=== PATIENT | male | born 1940 | race Caucasian/White ===

== ENCOUNTER 2020-09-29 11:37 | Inpatient (IN) | payer MEDICARE ==
[~2020-09-29] VITALS: Ht 167.6 cm; Wt 89.1 kg
--- NOTE | 2020-09-29 11:45 | NUR ---
Pt ambulated to room # 10 for bedside triage
[2020-09-29 12:04] LABS: HEMATOCRIT 43.9 % (39.0-50.0); HEMOGLOBIN 14.2 g/dl (14.0-18.0); IMMATURE GRANULOCYTES 0.3 % (0.0-5.0); MEAN CELL VOLUME 89.2 fL CALC (80.0-100.0); MEAN CORPUSCULAR HGB 28.9 pG CALC (26.0-32.0); MEAN CORPUSCULAR HGB CONC 32.3 g/dL CAL (32.0-36.0); NEUT# 8.09 thou/uL (1.82-7.42); RED BLOOD COUNT 4.92 mill/uL (4.70-6.10); RED CELL DISTRI WIDTH 12.5 % (11.5-15.5)
--- NOTE | 2020-09-29 12:18 | NUR ---
patient restiong with at bedside. denies pain,resp. easy. Urinal given with request for sample.
[2020-09-29 12:28] LABS: ALBUMIN 4.2 g/dL (3.2-5.0); ALKALINE PHOSPHATASE 88 u/l (38-126); ANION GAP 11 (6-22 (CALC)); BILIRUBIN, TOTAL 0.5 mg/dL (0.0-1.4); BUN 19 mg/dL (8-23); BUN/CREATININE RATIO 19 (12-20 (CALC)); CARBON DIOXIDE 26 mmol/l (22-30); CHLORIDE 106 mmol/l (95-108); GFR > 60 ML/MIN (>=60 (CALC)); GFR FOR AFR.AMER. > 60 ML/MIN (>=60 (CALC)); POTASSIUM 4.2 mmol/l (3.5-5.1); SGOT/AST 29 u/l (19-48); SODIUM 138 mmol/l (137-146)
[2020-09-29 12:29] LABS: ACT PARTIAL THROMBO TIME 27.7 SECONDS (20.0-32.5); PROTHROMBIN TIME 9.9 SECONDS (9.0-12.5)
[2020-09-29] MEDS ORDERED: OMEPRAZOLE DR40 MG PO (12:43)
[2020-09-29] MEDS ORDERED: LISINOP/HCTZ1 TA1 PO (12:45)
[2020-09-29] MEDS ORDERED: PRAVASTATIN20 MG PO (12:46)
[2020-09-29] MEDS ORDERED: NORVASC5 M1 PO (12:46)
[2020-09-29] MEDS ORDERED: KAPSPARGO SPRIN25 MG PO (12:47)
[2020-09-29] MEDS ORDERED: ELIQUIS5 MG PO (12:47)
[2020-09-29] MEDS ORDERED: ASPIRIN81 MG PO (12:48)
[2020-09-29] MEDS ORDERED: MULTIVITAMI1 PO (12:48)
--- NOTE | 2020-09-29 13:15 | NUR ---
IV MEDS INFUSING WITHOUT DIFFICULTY. STABLE ON MONITOR. NO COMPLAINTS AT THIS TIME.
[2020-09-29 13:39] LABS: URINE BILIRUBIN - DIPSTICK NEGATIVE (NEGATIVE); URINE BLOOD DIPSTICK NEGATIVE (NEGATIVE); URINE COLOR YELLOW; URINE GLUCOSE - DIPSTICK NEGATIVE (NEGATIVE); URINE KETONE NEGATIVE (NEGATIVE); URINE LEUK ESTERASE NEGATIVE (NEGATIVE); URINE NITRITE - DIPSTICK NEGATIVE (Negative); URINE PH 7.5 (4.5-8.0); URINE PROTEIN - DIPSTICK NEGATIVE (NEG-TRACE); URINE UROBILINOGEN - DIPSTICK 0.2 E.U./dL (0.2)
--- NOTE | 2020-09-29 14:10 | NUR ---
NO CHANGE FROM PREVIOUS ASSESSMENT.
--- NOTE | 2020-09-29 15:10 | NUR ---
PT SLEEPING, LIGHTS TURNED DOWN. STABLE ON MONITOR.
[2020-09-29 16:00] VITALS: BP 121/61
--- NOTE | 2020-09-29 16:05 | NUR ---
NO CHANGE FROM PREVIOUS ASSESSMENT.
--- NOTE | 2020-09-29 17:30 | NUR ---
MEAL TRAY PROVIDED. STABLE ON MONITOR. PERSONAL ITEMS WITHIN REACH.
--- NOTE | 2020-09-29 18:35 | NUR ---
[place] PROVIDED TO PT. STABLE ON MONITOR. NO COMPLAINTS AT THIS TIME.
--- NOTE | 2020-09-29 19:19 | NUR ---
ANDRADE ZHENG MADE AWARE OF ELEVATED TROPIN 0.336. NEW ORDERS RECIEVED.
--- NOTE | 2020-09-29 19:29 | NUR ---
NO C/O CP OR SOB OFFERED AT THIS TIME. V/S STABLE.
[2020-09-29 20:00] VITALS: BP 118/59
--- NOTE | 2020-09-29 20:05 | NUR ---
SBAR PRINTED TO FLOOR
--- NOTE | 2020-09-29 20:33 | NUR ---
Called for bed assignment and nursing supervisor lump room states she is giving MS nurse "time to catch up" maybe half hour
--- NOTE | 2020-09-29 20:50 | NUR ---
Pt taken to MS by nursing supervisor model making Jackie. MS nurse to call Yi for report when she has time.
[2020-09-29 20:53] VITALS: BP 130/69
--- NOTE | 2020-09-29 20:55 | NUR ---
TRANSFERRED TO ROOM 273 VIA WHEELCHAIR IS STABLE CONDITION AFTER AMBULATING TO BATHROOM WITHOUT DIZZINESS OR LIGHTHEADEDNESS. ORIENTED TO ROOM AND CALL SYSTEM. Anali ARAUJO CNA IN ROOM.
--- NOTE | 2020-09-29 20:55 | NUR ---
PT. TAKEN TO [facility] VIA W/C NO C/O CP OR SOB OFFERED.
[2020-09-29 23:00] VITALS: BP 96/42
--- NOTE | 2020-09-30 00:30 | NUR ---
PATIENT ADMITTED FROM ER VIA WHEELCHAIR WITH NSG SUP IN ATTENDANCE. PATIENT ABLE TO TRANSFER FROM WHEELCHAIR TO BED. PATIENT IS AWAKE ALERT AND ORIENTEDX3. PATIENT IS ADMITTED FOR SYNCOPE AND A-FIB RVR. PATIENT WITH NO COMPLAINTS AT THIS TIME. STATES THAT HE DID PASS OUT AT HOME TODAY AND THAT HE HAS BEEN HAVING "DIZZY SPELLS" FOR LAST COUPLE WEEKS. TELE MONITOR IN PLACE. IV SITE TO LEFT FOREARM INTACT AND PATENT. PATIENT WITH SALINE LOCK TO RAC-SITE IS HEALTHY. PATIENT PROVIDED WITH MEAL AND DRINK UPON ADMISSION. PATIENT ORIENTED TO ROOM AND SURROUNDINGS. INSTRUCTED ON USE OF NURSE CALL LIGHT SYSTEM, TV REMOTE AND PHONE. SAFETY PRECAUTIONS REINFORCED. CALL LIGHT IN REACH. WILL CONT TO MONITOR.
--- NOTE | 2020-09-30 01:20 | NUR ---
RECIEVED CALL FROM CONNIE IN LAB WITH TROP RESULTS OF 0.331. SLIGHT DECREASE. PATIENT APPEARS SLEEPING AT THIS TIME POSTIONED ON LEFT SIDE WITH EYES CLOSED. RESPS ARE EVEN AND UNLAB ORED. TELE MONITOR IN PLACE. IVF PATENT AND INFUSING LEFT FOREARM SITE. CALL LIGHT IN REACH. WILL CONT TO MONITOR.
[2020-09-30 03:54] VITALS: BP 114/70
--- NOTE | 2020-09-30 05:23 | NUR ---
PATIENT WAS UP TO THE BR TO VOID WITH SB ASSIST. PATIENT DENIES FEELING LIGHTHEADED OR DIZZY. DENIES ANY PALPATATIONS OR CHEST PAIN. NO SOB NOTED. IVF PATENT AND INFUSING VIA LEFT FOREARM SITE. TELE MONITOR IN PLACE WILL REPEAT TROP AT 0600. SAFETY PRECAUTIONS REINFORCED. CALL LIGHT IN REACH. WILL CONT TO MONITOR.
[2020-09-30 06:30] LABS: HEMATOCRIT 39.7 % (39.0-50.0); HEMOGLOBIN 12.5 g/dl (14.0-18.0); IMMATURE GRANULOCYTES 0.4 % (0.0-5.0); MEAN CELL VOLUME 91.3 fL CALC (80.0-100.0); MEAN CORPUSCULAR HGB 28.7 pG CALC (26.0-32.0); MEAN CORPUSCULAR HGB CONC 31.5 g/dL CAL (32.0-36.0); NEUT# 5.97 thou/uL (1.82-7.42); RED BLOOD COUNT 4.35 mill/uL (4.70-6.10); RED CELL DISTRI WIDTH 12.8 % (11.5-15.5)
[2020-09-30 06:52] LABS: ALBUMIN 3.5 g/dL (3.2-5.0); ALKALINE PHOSPHATASE 68 u/l (38-126); ANION GAP 11 (6-22 (CALC)); BILIRUBIN, TOTAL 0.4 mg/dL (0.0-1.4); BUN 16 mg/dL (8-23); BUN/CREATININE RATIO 18 (12-20 (CALC)); CALCULATED LDLCHOLESTEROL 63 mg/dL (62-129 (CALC)); CARBON DIOXIDE 24 mmol/l (22-30); CHLORIDE 109 mmol/l (95-108); CHOLESTEROL HDL RATIO 4.4 (<4.4 (CALC)); CREATININE 0.9 mg/dL (0.7-1.3); GFR > 60 ML/MIN (>=60 (CALC)); GFR FOR AFR.AMER. > 60 ML/MIN (>=60 (CALC)); HDL CHOLESTEROL 32 mg/dL (>=40); POTASSIUM 4.7 mmol/l (3.5-5.1); SGOT/AST 25 u/l (19-48); SODIUM 139 mmol/l (137-146); TOTAL CHOLESTEROL 137 mg/dl (0-199); TOTAL PROTEIN 5.9 g/dL (6.3-8.2); TOTAL TRIGLYCERIDES 216 mg/dl (30-149); VLDL CHOLESTROL 43 mg/dl (0-38 (CALC))
[2020-09-30 08:11] VITALS: BP 132/63
--- NOTE | 2020-09-30 08:11 | NUR ---
RECIEVED REPORT FROM ANTHONY RAMIREZ. PT RESTING IN SEMI FOWLERS POSITION UPON ENTERING ROOM. INTRODUCED SELF TO PT AND DISCUSSED POC. PT IS A/O X3. ASSESSMENT AND VITALS COMPLETED. BP 132/63, HR 57, O2 96% ON ROOM AIR. RESPIRATIONS ARE EVEN AND UNLABORED. LUNG SOUNDS CLEAR. HEART RHYTHM IS NORMAL WITH TELE IN PLACE, SB PER ER MONITORING. BWOEL SOUNDS ARE ACTVE IN ALL QUADRANTS, LAST REPORTED BM 09/28/2020. RADIAL PULSES STRONG. PEDAL WEAK. #20G IN LFA RUNNING WITH IVF PER ORDER, SITE APPEARS HEALTHY AND PATENT. #20G IN RAC FLUSHED, SITE APPEARS HEALTHY AND PATENT. PT DENIES OF ANY PAIN AT THIS TIME. ALL SAFETY PRECAUTIONS ARE IN PLACE WITH CALL LIGHT IN REACH. PT ENCOURAGED PT TO CALL FOR ASSISTANCE. ALL SAFETY PRECAUTIONS ARE IN PLACE WITH CALL LIGHT IN REACH. WILL CONTINUE TO MONITOR
--- NOTE | 2020-09-30 08:38 | NUR ---
DR RAMESH AT BEDSIDE
--- NOTE | 2020-09-30 09:07 | NUR ---
CALLED DR. AMADOR OFFICE IN [place] SPOKE TO NISHA REGARDING CONUSULTATION FOR THIS PT AND WAS GIVEN FAX NUMBER TO FAX RECORDS TO OFFICE REGARDING THIS PT.
--- NOTE | 2020-09-30 09:13 | NUR ---
JORGE, AI NOTFIED OF HR. ORDERED TO ADMINISTER ALL MORNING MEDICATIONS
--- NOTE | 2020-09-30 09:51 | NUR ---
Patient is screened for PT interventions and no needs are identified at this time
--- NOTE | 2020-09-30 12:54 | NUR ---
PT RESTING ON RIGHT SIDE WATCHING TV. RESPIRATIONS ARE EVEN AND UNLABORED ON ROOM AIR. IVF INFUSING PER ORDER IN #20G LAC, SITE REMAINS EVEN AND UNLABORED. PT DENIES OF ANY PAIN OR DISCOMFORTS. ALL SAFETY PRECAUTIONS ARE IN PLACE WITH CALL LIGHT IN REACH. WILL CONTINUE TO MONITOR.
[2020-09-30 15:20] VITALS: BP 109/62
--- NOTE | 2020-09-30 16:00 | NUR ---
PT RESTING IN SEMI FOWLERS POSITION. RESPIRATIONS ARE EVEN AND UNLABORED ON ROOM AIR. IVF INFUSING PER ORDER, SITE APPEARS HEALTHY AND PATENT. PT DENIES OF ANY PAINS OR DISCOMFORTS AT THIS TIME. ALL SAFETY PRECAUTIONS AR EIN PLACE WITH CALL LIGHT IN REACH. WILL CONTINUE TO MONITOR
[2020-09-30 19:05] VITALS: BP 115/63
--- NOTE | 2020-09-30 20:05 | NUR ---
PHYSICAL ASSESMENT COMPLETE. PT CURRENTLY DENIES PAIN OR DISCOMFORT. SCHEDULED MEDICATIONS AND PRN MEDICATION ADMINISTERED, SEE E-MAR. PT DENIES ANY NEEDS AT THIS TIME. PLAN OF CARE REVIEWED, PT DENIES QUESTIONS, VERBALIZES UNDERSTANDING. ITEMS WITHIN REACH, BED LOCKED IN LOW POSITION W/ BEDRAILS UP X2. CALL NÚÑEZ WITHIN REACH, AGREES TO CALL PRN.
--- NOTE | 2020-09-30 21:30 | NUR ---
ED FLARE WORKER CALLED TO INFORM PT SPIKED UP TO 170 ON HIS TELEMENTRY MONITOR. PT WAS UP TO THE BATHROOM. RETOOK VITAL AND HR HAD RETURN TO 90S. WILL CONTINUE TO MONITOR.
--- NOTE | 2020-10-01 00:05 | NUR ---
PT LAYING IN BED WITH EYES CLOSED, APPEARS TO BE SLEEPING, APPEARS COMFORTABLE AND IN NO DISTRESS. RESPIRATIONS REGULAR AND UNLABORED. ITEMS REMAIN WITHIN REACH, CALL NÚÑEZ REMAINS WITHIN REACH. BED REMAINS LOCKED AND IN LOW POSITION WITH BEDRAILS UP X2. WILL CONTINUE TO MONITOR.
[2020-10-01 00:21] VITALS: BP 123/72
--- NOTE | 2020-10-01 04:17 | NUR ---
PT RESTING IN BED, NO S/S OF DISTRESS AT THIS TIME. SAFETY PRECAUTIONS IN PLACE. WILL CONTINUE TO MONITOR.
[2020-10-01 04:33] VITALS: BP 128/61
[2020-10-01 08:00] VITALS: BP 146/77
--- NOTE | 2020-10-01 08:00 | NUR ---
RECIEVED REPORT FROM ANTHONY WILSON. PT RESTING IN SEMI FOWLERS POSITION UPON ENTERING ROOM. INTRODUCED SELF TO PT AND DISCUSSED POC. PT IS A/O X3. ASSESSMENT AND VITALS COMPLETED. BP 146/77, HR 72, O2 100% ON ROOM AIR. RESPRIATIONS ARE EVEN AND UNLABORED WITH NO DISTRESS NOTED.HEART RHYTHM NORMAL WITH TELE IN PLACE, SB PER ER MONITORING. BOWEL SOUNDS ARE ACTIVE, LAST REPORTED BM 10/01/2020. RADIAL AND PEDAL PUSLES ARE STRONG WITH NORMAL CAPILLARY REFILL. #20G IN LAC RUNNING WITH IV FLUIDS PER ORDER, SITE APPEARS HEALTHY AND PATENT. PT DENIES OF ANY PAIN OR DISCOMFORTS. ALL SAFETY PRECAUTIONS ARE IN PLACE WITH CALL LIGHT IN REACH. WILL CONTINUE TO MONITOR.
--- NOTE | 2020-10-01 09:02 | NUR ---
DR RAMESH AT BEDSIDE
[2020-10-01] MEDS ORDERED: LOPRESSOR 550 MG/TAB PO (10:11)
[2020-10-01 10:50] VITALS: BP 136/64
--- NOTE | 2020-10-01 11:50 | NUR ---
PT EDUCATED ON DISCHARGE INSTRUCTIONS AND NEW MEDICATIONS. PT VERBALIZED UNDERTSANDING. IV REMOVED WITH CATHATER WTILL INATCT. TELE MONIORING REMOVED. ER NOTFIED. PT GETTING DRESSED AT THIS TIME. WAITING FOR RIDE. WILL CONTIUE TO MONITOR
--- NOTE | 2020-10-01 12:18 | NUR ---
Discharge instructions given. Patient verbalizes understanding of same. Discharged in stable condition via Wheelchair to Home with staff. All belongings sent with pt. PT DISCHARGED VIA WHEELCHAIR IN STABLE CONDITION ACCOMPAINED BY STAFF. PT IS STABLE CONDITION WITH ALL BELONGINGS.
== END 2020-10-01 12:17 | disposition home or self-care (01) | DRG 310 ==
LOC: ED 11:37 → ED-I 13:50 → ED 13:57 → ED-I 13:58 → MS2 13:58
PROVIDERS: Nurse Practitioner; Student in an Organized Health Care Education/Training Program; ADMIT Internal Medicine; ATTEND Internal Medicine
DX: I48.91 Unspecified atrial fibrillation (principal); I49.5 Sick sinus syndrome; R55 Syncope and collapse; Z20.828 Contact with and (suspected) exposure to other viral communicable diseases; Z79.01 Long term (current) use of anticoagulants; Z79.82 Long term (current) use of aspirin; Z79.899 Other long term (current) drug therapy; Z95.2 Presence of prosthetic heart valve

== ENCOUNTER 2021-01-21 | Emergency (ER) | payer MEDICARE ==
[~2021-01-21] MED LIST: ASPIRIN81 MG PO; ELIQUIS5 MG PO; KAPSPARGO SPRIN25 MG PO; LISINOP/HCTZ1 TA1 PO; LOPRESSOR 550 MG/TAB PO; MULTIVITAMI1 PO; NORVASC5 M1 PO; OMEPRAZOLE DR40 MG PO; PRAVASTATIN20 MG PO
== END 2021-01-21 12:34 | disposition home or self-care (01) ==
PROC: 2W3DX1Z Immobilization of Left Lower Arm using Splint (ICD-10-PCS; principal; 2021-01-21)
DX: S52.502A Unspecified fracture of the lower end of left radius, initial encounter for closed fracture (principal); I10 Essential (primary) hypertension; I25.10 Atherosclerotic heart disease of native coronary artery without angina pectoris; I48.91 Unspecified atrial fibrillation; W10.9XXA Fall (on) (from) unspecified stairs and steps, initial encounter; Y92.009 Unspecified place in unspecified non-institutional (private) residence as the place of occurrence of the external cause; Z85.46 Personal history of malignant neoplasm of prostate; Z85.820 Personal history of malignant melanoma of skin

== ENCOUNTER 2021-12-20 09:08 | Observation (INO) | payer MEDICARE ==
[~2021-12-20] VITALS: Ht 167.6 cm; Wt 93.0 kg
[2021-12-20] VITALS (13 sets, daily range): BP systolic 111–156; BP diastolic 44–63
[2021-12-20 09:38] LABS: HEMOGLOBIN 13.8 g/dl (14.0-18.0); IMMATURE GRANULOCYTES 0.2 % (0.0-5.0); MEAN CELL VOLUME 90.3 fL CALC (80.0-100.0); MEAN CORPUSCULAR HGB CONC 32.1 g/dL CAL (32.0-36.0); NEUT# 6.6 thou/uL (1.82-7.42); RED BLOOD COUNT 4.76 mill/uL (4.70-6.10); RED CELL DISTRI WIDTH 12.7 % (11.5-15.5)
[2021-12-20] MEDS ORDERED: METOPROL TAR25 MG PO (09:51)
[2021-12-20] MEDS ORDERED: FLECAINIDE50 MG PO (09:53)
[2021-12-20 09:54] LABS: INTERNATIONAL NORMALIZED RATIO 1.1 RATIO (0.7-1.3)
[2021-12-20 10:00] LABS: ALBUMIN 4.1 g/dL (3.2-5.0); ALKALINE PHOSPHATASE 87 u/l (38-126); ANION GAP 13 (6-22 (CALC)); BILIRUBIN, TOTAL 0.5 mg/dL (0.0-1.4); BUN 17 mg/dL (8-23); BUN/CREATININE RATIO 18 (12-20 (CALC)); CARBON DIOXIDE 24 mmol/l (22-30); CHLORIDE 102 mmol/l (95-108); CREATININE 0.9 mg/dL (0.7-1.3); GFR > 60 ML/MIN (>=60 (CALC)); GFR FOR AFR.AMER. > 60 ML/MIN (>=60 (CALC)); POTASSIUM 4.2 mmol/l (3.5-5.1); SODIUM 134 mmol/l (137-146)
[2021-12-20 10:10] LABS: SGOT/AST 62 u/l (19-48); TOTAL PROTEIN 7.3 g/dL (6.3-8.2)
[2021-12-20 13:37] LABS: C-REACTIVE PROTEIN 4.8 mg/dL (0-0.9); CHOLESTEROL HDL RATIO 5.1 (<4.4 (CALC))
[2021-12-21] VITALS (8 sets, daily range): BP systolic 100–138; BP diastolic 32–54
[2021-12-21 05:57] LABS: URINE BILIRUBIN - DIPSTICK NEGATIVE (NEGATIVE); URINE BLOOD DIPSTICK TRACE-INTACT (NEGATIVE); URINE COLOR YELLOW; URINE GLUCOSE - DIPSTICK NEGATIVE (NEGATIVE); URINE KETONE NEGATIVE (NEGATIVE); URINE NITRITE - DIPSTICK NEGATIVE (Negative); URINE PH 5.5 (4.5-8.0); URINE PROTEIN - DIPSTICK NEGATIVE (NEG-TRACE); URINE SPECIFIC GRAVITY 1.025; URINE UROBILINOGEN - DIPSTICK 0.2 E.U./dL (0.2)
[2021-12-21 05:58] LABS: URINE LEUK ESTERASE NEGATIVE (NEGATIVE)
[2021-12-21 06:18] LABS: HEMATOCRIT 41.7 % (39.0-50.0); HEMOGLOBIN 13.3 g/dl (14.0-18.0); MEAN CORPUSCULAR HGB CONC 31.9 g/dL CAL (32.0-36.0); RED BLOOD COUNT 4.58 mill/uL (4.70-6.10)
[2021-12-21 06:38] LABS: ANION GAP 11 (6-22 (CALC)); BUN 19 mg/dL (8-23); BUN/CREATININE RATIO 19 (12-20 (CALC)); CALCULATED LDLCHOLESTEROL 74 mg/dL (62-129 (CALC)); CARBON DIOXIDE 26 mmol/l (22-30); CHLORIDE 103 mmol/l (95-108); CHOLESTEROL HDL RATIO 4.4 (<4.4 (CALC)); GFR > 60 ML/MIN (>=60 (CALC)); GFR FOR AFR.AMER. > 60 ML/MIN (>=60 (CALC)); HDL CHOLESTEROL 33 mg/dL (>=40); MAGNESIUM 2.1 mg/dL (1.6-2.3); POTASSIUM 4.1 mmol/l (3.5-5.1); SODIUM 136 mmol/l (137-146); TOTAL CHOLESTEROL 144 mg/dl (0-199); TOTAL TRIGLYCERIDES 185 mg/dl (30-149); VLDL CHOLESTROL 37 mg/dl (0-38 (CALC))
[2021-12-22 00:11] VITALS: BP 101/49
[2021-12-22 05:20] VITALS: BP 97/40
[2021-12-22 06:41] LABS: HEMATOCRIT 41.8 % (39.0-50.0); HEMOGLOBIN 13.2 g/dl (14.0-18.0); MEAN CELL VOLUME 91.1 fL CALC (80.0-100.0); MEAN CORPUSCULAR HGB 28.8 pG CALC (26.0-32.0); MEAN CORPUSCULAR HGB CONC 31.6 g/dL CAL (32.0-36.0); RED BLOOD COUNT 4.59 mill/uL (4.70-6.10); RED CELL DISTRI WIDTH 13.1 % (11.5-15.5)
[2021-12-22 06:44] LABS: ANION GAP 12 (6-22 (CALC)); BUN 18 mg/dL (8-23); BUN/CREATININE RATIO 17 (12-20 (CALC)); CARBON DIOXIDE 24 mmol/l (22-30); CHLORIDE 105 mmol/l (95-108); CREATININE 1.1 mg/dL (0.7-1.3); GFR > 60 ML/MIN (>=60 (CALC)); GFR FOR AFR.AMER. > 60 ML/MIN (>=60 (CALC)); MAGNESIUM 2.3 mg/dL (1.6-2.3); POTASSIUM 4.2 mmol/l (3.5-5.1); SODIUM 137 mmol/l (137-146)
[2021-12-22 07:48] VITALS: BP 124/52
[2021-12-22] MEDS ORDERED: DOXYCYCLINE100 MG PO (08:39)
[2021-12-22 10:52] VITALS: BP 128/40
== END 2021-12-22 12:16 | disposition home or self-care (01) ==
LOC: ED 09:08 → ED-I 10:35 → ED 11:03 → MS2 11:04
PROVIDERS: Family Medicine; Nurse Practitioner; ADMIT Internal Medicine; ATTEND Internal Medicine
DX: R55 Syncope and collapse (principal); R42 Dizziness and giddiness; R20.0 Anesthesia of skin; R26.89 Other abnormalities of gait and mobility; J18.9 Pneumonia, unspecified organism; I10 Essential (primary) hypertension; I48.0 Paroxysmal atrial fibrillation; I65.21 Occlusion and stenosis of right carotid artery; I25.10 Atherosclerotic heart disease of native coronary artery without angina pectoris; K21.9 Gastro-esophageal reflux disease without esophagitis; G47.33 Obstructive sleep apnea (adult) (pediatric); E78.5 Hyperlipidemia, unspecified; Z85.46 Personal history of malignant neoplasm of prostate; Z95.3 Presence of xenogenic heart valve; Z79.01 Long term (current) use of anticoagulants; Z20.822 Contact with and (suspected) exposure to COVID-19
CPT/HCPCS: G0378; Q9967